=== PATIENT | male | born 1990 | race Caucasian/White ===

== ENCOUNTER 2017-11-25 17:27 | Observation (INO) | payer OTHER ==
--- NOTE | 2017-11-25 17:43 | CPEKG ---
Heart Rate: 70 RR Interval: 857 P-R Interval: 156 QRSD Interval: 100 QT Interval: 436 QTC Interval: 471 P [place]: 32 QRS [place]: 108 T Wave [place]: 60 EKG Severity - ABNORMAL ECG - EKG Impression: SINUS ARRHYTHMIA, RATE 52-81 Electronically Signed By: Ba Gary 27-Nov-2017 07:25:55
[2017-11-25] MEDS ORDERED: ASPIRIN 81 MG CHEWABLE TAB PO ONE (17:45)
[2017-11-25] MEDS ORDERED: NS 1,000 ML IV ONE (17:45)
--- NOTE | 2017-11-25 17:49 | EDPHY ---
H & P Time Seen by Provider: 11/25/17 17:45 HPI/ROS: CHIEF COMPLAINT: Near syncope HISTORY OF PRESENT ILLNESS: Patient is a 26-year-old male who presents to the emergency department after having a near syncopal episode. Patient states he was going working gotten lift. He began to feel lightheaded and as though he might pass out. He went to get water from [employer]. He laid down on the ground because of his symptoms. He denies loss of consciousness. He has no headache. He has had ongoing chest pain for the past few days after"taking hit of marijuana." He has no significant shortness of breath. No abdominal pain. No nausea vomiting. He complains of an abrasion to his left elbow but denies any other trauma. EMS reports a normal EKG. His glucose was 150. He did have 1 episode of hypotension. REVIEW OF SYSTEMS: My complete review of systems is negative except as mentioned in the HPI. Past Medical/Surgical History: Includes depression, anxiety Social history: Includes THC. No drugs or alcohol today. Smoking Status: Never smoked Physical Exam: Vitals noted GENERAL: Mild acute distress, alert. HEENT: Eyes normal to inspection, normal pharynx, no signs of dehydration. NECK: No thyromegaly, no lymphadenopathy, supple. RESPIRATORY: Clear to auscultation bilaterally, no rales, rhonchi or wheezing. CVS: Regular rate and rhythm, no rubs, murmurs, or gallops. ABDOMEN: Soft, nontender, nondistended, no organomegaly. BACK: Normal to inspection, no CVA tenderness. SKIN: Normal color, no rash, warm, dry. No pallor. EXTREMITIES: No pedal edema, no calf tenderness, no Homans sign or cords, no joint swelling. NEURO/PSYCH: Higher functions: Alert and Oriented x3. Normal speech and cognition. Normal mood and affect. Cranial nerves: Normal as tested. Cerebellar: Normal as tested. Good finger to nose, good ostn-pi-jget. Peripheral exam: Normal motor exam. Normal sensation. Constitutional: Initial Vital Signs Temperature (C) 36.6 C 11/25/17 17:35 Heart Rate 77 11/25/17 17:35 Respiratory Rate 12 11/25/17 17:35 Blood Pressure 122/85 H 11/25/17 17:35 O2 Sat (%) 97 11/25/17 17:35 O2 Delivery Mode Room Air Allergies/Adverse Reactions: No Known Allergies Allergy (Unverified 11/25/17 17:35) Home Medications: Medication Instructions Recorded Herbals/Supplements -Info Only 1 ea PO DAILY 11/25/17 Medical Decision Making - Diagnostics Imaging Results: Imaging Impressions Chest X-Ray 11/25/17 17:46 Impression: 1. No acute pulmonary disease. 2. No pneumothorax. ED Course/Re-evaluation: In the emergency department I met EMS on arrival. I took report from the oil filters inspector. Laboratory studies and EKG were obtained. Patient was noted to have an intermittent episode of bradycardia to the 40s on his monitor. This was not common EKG. Patient had defibrillator pads placed. Patient was given normal saline 1 L IV for hydration. EKG shows normal sinus rhythm, normal rate, left posterior fascicular block, borderline prolonged QT. Patient's CBC was unremarkable. Chemistry panel was notable for mildly elevated anion gap. Troponin was negative. Coags were normal. 1920: Patient has a repeat episode of feeling lightheaded and dizzy. It was noted that he wanted SVT at a rate of 170. He performed a Valsalva maneuver and this converted him back into a sinus rhythm at 107. Patient's symptoms improved after he was in a sinus rhythm. Repeat EKG was ordered. I discussed case with the hospitalist service. Dr. Yoder accepted. U tox was added I discussed the case with Dr. Jeffery Stanford. A repeat EKG Sinus arrhythmia at 81. Borderline right axis deviation. Borderline prolonged QT. Differential Diagnosis: My differential includes but is not limited to bradycardia, dysrhythmia, ACS, acute CO, electrolyte abnormality, sugar abnormality, anxiety, drug use Critical Care Time: Patient required 35 min of critical care time. This was exclusive of any unbundled procedure. This was due the patient's initial presentation and symptoms, bradycardia, tachycardia with SVT, consultation with hospitalist service and Cardiology, frequent rechecks and time spent at the bedside. - Data Points Laboratory Results: Laboratory Results 11/25/17 17:45 11/25/17 17:45 11/25/17 11/25/17 11/25/17 17:45 17:45 17:45 WBC RBC Hgb Hct MCV MCH MCHC RDW Plt Count MPV Neut % (Auto) Lymph % (Auto) Carver % (Auto) Eos % (Auto) Baso % (Auto) Nucleat RBC Rel Count Absolute Neuts (auto) Absolute Lymphs (auto) Absolute Monos (auto) Absolute Eos (auto) Absolute Basos (auto) Absolute Nucleated RBC Immature Gran % Immature Gran # PT INR APTT Sodium 140 mEq/L mEq/L (135-145) Potassium 3.6 mEq/L mEq/L (3.5-5.2) Chloride 100 mEq/L mEq/L (97-110) Carbon Dioxide 21 mEq/l L mEq/l (22-31) Anion Gap 19 mEq/L H mEq/L (8-16) BUN 18 mg/dL mg/dL (7-23) Creatinine 1.2 mg/dL mg/dL (0.7-1.3) Estimated GFR > 60 Glucose 135 mg/dL H mg/dL (70-100) Calcium 9.6 mg/dL mg/dL (8.5-10.4) Magnesium 1.9 mg/dL mg/dL (1.6-2.3) Troponin I < 0.012 ng/mL ng/mL (0.000-0.034) TSH 0.779 uIU/mL uIU/mL (0.465-4.680) 11/25/17 11/25/17 17:45 17:45 WBC 5.69 10^3/uL 10^3/uL (3.80-9.50) RBC 5.86 10^6/uL 10^6/uL (4.40-6.38) Hgb 16.8 g/dL g/dL (13.7-17.5) Hct 49.8 % % (40.0-51.0) MCV 85.0 fL fL (81.5-99.8) MCH 28.7 pg pg (27.9-34.1) MCHC 33.7 g/dL g/dL (32.4-36.7) RDW 12.3 % % (11.5-15.2) Plt Count 282 10^3/uL 10^3/uL (150-400) MPV 9.3 fL fL (8.7-11.7) Neut % (Auto) 57.8 % % (39.3-74.2) Lymph % (Auto) 33.0 % % (15.0-45.0) Carver % (Auto) 7.2 % % (4.5-13.0) Eos % (Auto) 1.4 % % (0.6-7.6) Baso % (Auto) 0.4 % % (0.3-1.7) Nucleat RBC Rel Count 0.0 % % (0.0-0.2) Absolute Neuts (auto) 3.29 10^3/uL 10^3/uL (1.70-6.50) Absolute Lymphs (auto) 1.88 10^3/uL 10^3/uL (1.00-3.00) Absolute Monos (auto) 0.41 10^3/uL 10^3/uL (0.30-0.80) Absolute Eos (auto) 0.08 10^3/uL 10^3/uL (0.03-0.40) Absolute Basos (auto) 0.02 10^3/uL 10^3/uL (0.02-0.10) Absolute Nucleated RBC 0.00 10^3/uL 10^3/uL (0-0.01) Immature Gran % 0.2 % % (0.0-1.1) Immature Gran # 0.01 10^3/uL 10^3/uL (0.00-0.10) PT 14.2 SEC SEC (12.0-15.0) INR 1.08 (0.83-1.16) APTT 28.1 SEC SEC (23.0-38.0) Sodium Potassium Chloride Carbon Dioxide Anion Gap BUN Creatinine Estimated GFR Glucose Calcium Magnesium Troponin I TSH Medications Given: Discontinued Medications Aspirin (Aspirin) 324 mg PO EDNOW ONE Stop: 11/25/17 17:46 Last Admin: 11/25/17 17:52 Dose: 324 mg Sodium Chloride (Ns) 1,000 mls @ 0 mls/hr IV EDNOW ONE; Wide Open PRN Reason: Protocol Stop: 11/25/17 17:46 Last Admin: 11/25/17 17:52 Dose: 1,000 mls Departure - Departure Disposition: [facility] Inpatient Acute Clinical Impression: Near syncope, SVT (supraventricular tachycardia), Bradyarrhythmia Condition: Good
[2017-11-25 17:59] LABS: INR 1.08 (0.83-1.16); PROTIME(PATIENT) 14.2 SEC (12.0-15.0)
[2017-11-25 18:16] LABS: PLATELET COUNT 282 10^3/uL (150-400)
[2017-11-25] MEDS ORDERED: ONDANSETRON 4 MG/2 ML VIAL IVP PRN (19:37)
[2017-11-25] MEDS ORDERED: ONDANSETRON DISINTEGRATING 4 MG TAB PO PRN (19:37)
[2017-11-25] MEDS ORDERED: ACETAMINOPHEN 325 MG TAB PO PRN (19:37)
--- NOTE | 2017-11-25 19:50 | CPEKG ---
Heart Rate: 66 RR Interval: 909 P-R Interval: 156 QRSD Interval: 98 QT Interval: 432 QTC Interval: 453 P [place]: 22 QRS [place]: 106 T Wave [place]: 57 EKG Severity - OTHERWISE NORMAL ECG - EKG Impression: SINUS RHYTHM EKG Impression: BORDERLINE RIGHT AXIS DEVIATION Electronically Signed By: Ba Gayr 27-Nov-2017 07:26:03
--- NOTE | 2017-11-25 20:49 | CPEKG ---
Heart Rate: 106 RR Interval: 566 P-R Interval: 152 QRSD Interval: 92 QT Interval: 372 QTC Interval: 494 P [place]: 55 QRS [place]: 110 T Wave [place]: 37 EKG Severity - ABNORMAL ECG - EKG Impression: SINUS TACHYCARDIA Electronically Signed By: Les Robin 26-Nov-2017 06:53:13
[2017-11-25] MEDS ORDERED: NS 1,000 ML IV SCH (21:15)
--- NOTE | 2017-11-25 21:56 | GHP ---
[f rep st] HISTORY AND PHYSICAL DATE OF ADMISSION: 11/25/2017 CHIEF COMPLAINT: Syncope, jacquie/tachyarrhythmia. HISTORY OF PRESENT ILLNESS: A 26-year-old male with history of scoliosis, marijuana use, anxiety/depression. Brought into the ER by ambulance after having 5 syncopal episodes. In ER, says he had no LOC, but story differed in my exam. Was going to work and got out of the car to go into [employer] and felt very lightheaded and passed out. He laid on the ground due to the symptoms. Then passed out 4 more times briefly. Denies chest pain or shortness of breath. Has felt ill for the past 3 days with fevers, chills, sweats, cough with brownish sputum today. He has several roommates and could have been exposed to infection. No nausea, vomiting, or diarrhea. Has a left elbow laceration after fall. In the ER, he was bradycardic to 40 on telemetry and then had a run of SVT per Dr. العلي. He self-converted with vagal maneuvers. Denies any sudden in the family. Has increased stressors with his hours being cut down at work. He just moved. Is trying to pay off his loans and now being here in the hospital has caused him more anxiety. Reports numbness and tingling throughout hands and feet today intermittently. No vision loss. No slurred speech. No headaches. REVIEW OF SYSTEMS: I completed a 10-point review of systems, negative except as noted in HPI. PAST MEDICAL HISTORY: 1. Scoliosis. 2. Chronic back pain. Uses marijuana. 3. Tobacco use: Vapes nicotine SOCIAL HISTORY: Has 4 roommates. Lives here in [place]. Works at a restaurant. Uses marijuana every 4 days. Vapes. No alcohol. FAMILY HISTORY: Father with cancer. Mother is healthy. Uncle with some heart condition. ALLERGIES: No known drug allergies. MEDICATIONS: Home medications: None. No odyf-loh-pxbqgrr supplements. PHYSICAL EXAMINATION: VITAL SIGNS: Temperature 36.7, blood pressure 124/79, heart rates 40 to 170 per ED report, respirations 20, 98% on room air. GENERAL : He is anxious. Appears uncomfortable. Mildly diaphoretic. HEENT: PERRLA. Dry mucous membranes. CV: Tachy but regular. No murmurs. LUNGS: Clear anteriorly. ABDOMEN: Soft, nontender, nondistended. Positive bowel sounds. : No Wilhelm. No suprapubic tenderness. MUSCULOSKELETAL: 5/5 upper and lower extremity strength. NEURO: 2-12 intact. No focal deficits. Normal sensation to touch. PSYCH: He is anxious. Flat affect. LABORATORY DATA: WBC is 5, hemoglobin 16, hematocrit 49, platelets 282. Coags within normal. Sodium 140, potassium 3.6, chloride 100, carbon dioxide 21. Anion gap 19. Creatinine is 1.2, glucose is 135. Calcium 9.9. Magnesium is 1.9. Troponin is less than 0.012. TSH is 0.779. Chest x-ray personally reviewed by me: No opacity or effusion. EKG personally reviewed by me at 1737 shows a sinus arrhythmia. Repeat showed normal sinus rhythm. Prolonged QTc 494 with a right axis deviation. ASSESSMENT AND PLAN: 1. Syncope: Differential includes orthostasis with decreased oral intake or arrhythmia. Had evidence of bradycardia and supraventricular tachycardia in the emergency room. He is dry on exam as well as an elevated creatinine. He self-converted supraventricular tachycardia with vagal maneuvers. Check lytes. Normal magnesium. Does have evidence of prolonged QTc. There is no sudden cardiac in the family. Will monitor in the PCU on telemetry. Echocardiogram in the morning. Dr. Stanford with cardiology will consult. Anxiety may be playing a role while here as he is very anxious. 2. Chronic back pain: Uses marijuana. 3. Reported numbness, tingling: He has no focal deficits on my exam. Imaging is not warranted at this time. Appears to be having mild panic attack. 4. Diet: Regular. 5. Deep venous thrombosis prophylaxis: Low risk. Ambulatory. DISPOSITION: Patient warrants observation and admission for arrhythmia requiring telemetry, IV fluids, echo. /[id number]/MODL MTDD
--- NOTE | 2017-11-25 22:10 | CPEKG ---
Heart Rate: 84 RR Interval: 714 P-R Interval: 148 QRSD Interval: 96 QT Interval: 396 QTC Interval: 469 P [place]: 45 QRS [place]: 103 T Wave [place]: 41 EKG Severity - BORDERLINE ECG - EKG Impression: SINUS ARRHYTHMIA, RATE 63-97 EKG Impression: BORDERLINE RIGHT AXIS DEVIATION Electronically Signed By: Ba Gary 27-Nov-2017 07:25:38
--- NOTE | 2017-11-26 09:58 | ASMTCAGE ---
CAGE Do you feel you ought to Answers: No cut down on your drinking or drug use? Do people annoy you by Answers: No criticizing your drinking or drug use? Do you drink or use drugs Answers: Yes first thing in the morning ([employer])? Additional Comments uses marijuana when pain from scoliosis is 8/10 in the mornings. Drinks occasionally. See case management note for details. Date Signed: 11/26/2017 09:57 AM Electronically Signed By:Leona Anton RN
--- NOTE | 2017-11-26 10:04 | ASMTCMCOM ---
CM Note CM Note Notes: 11/26/2017 Case Management Note Met w/pt to complete CAGE questionnaire. Pt reports using marijuana for pain control d/t scoliosis every 3 to 4 days. Pt prefers edibles because its "all natural and more holistic". Pt drinks occasionally once every 2 - 3 months. Denies binge drinking. Pt is employed and looking for a second job. Case Management to have pt screened for Medicaid d/t lack of insurance. Pt denies difficulty with obtaining food and uses public transport, [employer] or [employer] for transportation. Pt lives with 4 roommates and his dog. Pt provided phone number for his Mom Erika Post [phone] but requested no contact be made at this time. Pt states he feels his depression is under control at this time. He meditates for his anxiety and finds it helpful. He declined any resources for counseling. Case Management d/c poc: independent with follow up as directed. Case Management to follow. Date Signed: 11/26/2017 10:04 AM Electronically Signed By:Leona Anton RN
--- NOTE | 2017-11-26 10:55 | ECHO ---
[email or web address] [address] [address] Main: [phone] Fax: Transthoracic Echocardiogram Name: ABIGAIL ALEGRIA MR#: [id number] Study Date: 11/26/2017 Study Time: 07:40 AM Date of : 1990 Age: 26 year(s) Height: 182.9 cm (72 in.) Weight: 99.79 kg (220 lb.) BSA: 2.22 m2 Gender: Male Examination: Echo Indication: Presyncope/SVT then bradycardia Image Quality: Contrast: Requested by: Kamille Pierre BP: 143 mmHg/83 mmHg Heart Rate: Rhythm: Indication: Presyncope/SVT then bradycardia Procedure Staff Dsp Engineer: Anila Albarran RDCS Reading Physician: Estela Guerrero MD Requesting Provider: Kamille Pierre Conclusions: Normal size left ventricle. No LV hypertrophy. Normal global systolic LV function. The ejection fraction is estimated to be 60-65 %. LV septal motion consistent with conduction abnormality.. Normal size right ventricle. Normal RV function. No significant valvular disease. No prior echo Measurements: Chambers Valvular Assessment AV/MV Valvular Assessment TV/PV Normal Normal Normal Name Value Range Name Value Range Name Value Range IVSd (2D): 0.7 cm (0.6 cm-1.1 AV meanP mmHg ( - ) cm) MV E Vmax: 0.84 m/s ( - ) LVDd (2D): 5.7 cm (4.2 cm-5.9 MV A Vmax: 0.66 m/s ( - ) cm) MV E/A: 1.27 ( - ) LVDs (2D): 3.5 cm (2.1 cm-4 cm) LVPWd (2D): 0.6 cm (0.6 cm-1 cm) EF Range: 60-65 % Continued Measurements: Chambers Valvular Assessment AV/MV Name Value Name Value LADs: 3.3 cm MV E' Septal: 0.12 m/s LADs Lon.7 cm MV E/E' Septal: 7.00 Patient: ABIGAIL ALEGRIA Study Date: 11/26/2017 Page 1 of 2 07:40 AM LA Area: 15.4 cm2 MV E/E' Lateral: 4.60 Additional Vessels Name Value Ao Ascendin.9 cm Findings: Left Ventricle: Normal size left ventricle. No LV hypertrophy. Normal global systolic LV function. The ejection fraction is estimated to be 60-65 %. LV septal motion consistent with conduction abnormality.. Right Ventricle: Normal size right ventricle. Normal RV function. Left Atrium: The left atrium is normal in size. Right Atrium: The right atrium is normal in size. Mitral Valve: The mitral valve is normal in appearance and function. Trivial mitral valve regurgitation. Aortic Valve: The aortic valve is normal in appearance and function. The aortic valve is tri-leaflet. Tricuspid Valve: The tricuspid valve is normal in appearance and function. Trivial tricuspid valve regurgitation. Pulmonic Valve: The pulmonic valve is normal in appearance and function. Aorta: The aorta is normal. Pericardium: No pericardial effusion. (No Signature Object) Patient: ABIGAIL ALEGRIA Study Date: 11/26/2017 Page 2 of 2 07:40 AM D:_[id number]
[2017-11-26 11:55] VITALS: BP 138/75
--- NOTE | 2017-11-26 12:07 | CPEKG ---
Heart Rate: 85 RR Interval: 706 P-R Interval: 156 QRSD Interval: 94 QT Interval: 376 QTC Interval: 447 P [place]: 39 QRS [place]: 104 T Wave [place]: 20 EKG Severity - OTHERWISE NORMAL ECG - EKG Impression: SINUS RHYTHM Electronically Signed By: Jatinder Woodard 26-Nov-2017 12:42:03
--- NOTE | 2017-11-26 12:14 | GCON ---
[f rep st] CONSULTATION CARDIOLOGY CONSULT DATE OF CONSULTATION: 11/26/2017 CHIEF COMPLAINT: SVT. HISTORY OF PRESENT ILLNESS: We were asked by Dr. Levine to visit with the patient. The patient is a pleasant 26-year-old male with no previous cardiac history and no ongoing medical problems. Yesterday, he was riding in a car on his way to work. He suddenly felt his arms go numb, and he felt very lightheaded and in general unwell. He asked to stop at a grocery store because he wanted to ge t some water. On the way in, he said that his whole body went numb, and he had significant presyncop e, to the point where he fell and hit his elbow and his backside. He did not have true loss of consc iousness. He reports that he noticed his heart was racing. He was brought to the ER and at that manuel e was in sinus rhythm. By report from the ER, he did have another episode of presyncope with pablo MOORET on the monitor at a rate of 170 beats per minute. He felt exactly like he did in the grocery store. I am attempting to obtain these rhythm strips. He was given fluids and admitted for observa tion. In general, he reports feeling well. He does have scoliosis and occasionally smokes marijuana for hi s back pain. He is active and runs, bikes, and lift weights. He does not have cardiovascular sympto ms outside of his arrhythmia episodes. He has never previously had syncope. He does know that about 6 months ago after drinking a single beer, he had similar symptoms where his arms went numb and he f elt lightheaded. He put ice on his face and under his armpits, and symptoms resolved. There is no f amily history of premature sudden cardiac . REVIEW OF SYSTEMS: A full 10-point review of systems was performed and is otherwise negative, except that which is outlined above. ALLERGIES: No known drug allergies. PAST MEDICAL HISTORY: Scoliosis. Depression. Anxiety. OUTPATIENT MEDICATIONS: None. SOCIAL HISTORY: The patient smokes marijuana about every 5 days. He drinks alcohol very rarely. He denies cocaine use. The last time he used psychedelic mushrooms was 3 years ago. He denies signifi cant stimulus use. FAMILY HISTORY: Negative for premature coronary disease or sudden cardiac . There is hypertens ion and cancer in his family. PHYSICAL EXAM: VITAL SIGNS: Blood pressure is 143/83. Heart rate has been 77-103. Oxygen saturati on 99% on room air. He is afebrile. GENERAL: Well-appearing young male in no acute distress. CARDI OVASCULAR: JVP is less than 10. Regular rate and rhythm, without murmur or gallop. LUNGS: Clear, without wheeze, rhonchi, or rales. HEENT: Sclerae clear, no jaundice. Mucous members are moist. No rmocephalic, atraumatic. ABDOMEN: Soft, nontender, nondistended. There is no hepatosplenomegaly. EXTREMITIES: Warm, well perfused, without cyanosis, clubbing, or edema. NEURO: Alert and oriented x3, without gross focal neurologic deficits. Appropriate mood and affect. Serial EKGs were reviewed by me, show sinus rhythm with left posterior fascicular block and intermitt ent borderline prolonged QT. Chest x-ray reviewed by me shows normal sinus rhythm. Echocardiogram reviewed by me shows normal LV size and systolic function. Mild septal wall motion abnormality, likely related to mild conduction s ystem delay. No significant valvular disease. Normal LV systolic function. LABORATORY DATA: CBC is normal. INR is normal. Basic metabolic panel is normal. Magnesium 1.9. T roponin negative x1 and TSH 0.779. His urine tox screen was positive. ASSESSMENT AND PLAN: A 26-year-old male with supraventricular tachycardia that was highly symptomati c. His QT is borderline prolonged, but on some EKGs, looks more normal. 1. Supraventricular tachycardia: We did discuss options with the patient, including daily medicatio ns, such as diltiazem, ablation, or quitting alcohol and nicotine, which I recommend regardless, and observing. The patient was also seen by my partner, Dr. Patel Gary, and these options were reviewed a gain. The patient would like to stop alcohol and nicotine completely and return if he has recurrent SVT, at which time an ablation could be considered. I think this is reasonable since he has a struct urally normal heart and did not have true syncope and is able to usually break the arrhythmia with va gal maneuvers. 2. Borderline QT: He did not receive Zofran in the ER. He has not had unexplained syncope. No kno wn family history of sudden . Repeat EKG now prior to discharge. Unlikely that this is clinica lly significant. Thank you for allowing us to participate in the patient's care. He is welcome to follow up as needed in our office. /[id number]/MODL
--- NOTE | 2017-11-26 12:37 | ASMTLACE ---
LACE Length of stay for Answers: Less than 1 day current admission Acuity / Level of Answers: No Care: Did the patient have an inpatient admission? # of Emergency department Answers: 1-2 visits in the last 6 months Social determinants Answers: History of substance abuse (ETOH, street drugs, prescription drugs, etc.) Mental health diagnosis (anxiety, depression, pers onality disorders, etc.) Score: 7 Date Signed: 11/26/2017 12:36 PM Electronically Signed By:Leona Anton RN
--- NOTE | 2017-11-26 12:46 | ASDISCHSUM ---
Discharge Information Plan Status:Home with No Needs Medically Cleared to Leave:11/26/2017 Discharge Date:11/26/2017 CM D/C Disposition:Home, Routine, Self-Care ADT D/C Disposition:Home, Routine, Self-Care Projected Discharge Date:11/26/2017 Transportation at D/C:Self Discharge Delay Reason: Follow-Up Date:11/26/2017 Discharge Slot: Final Diagnosis: Placement Information Patient Contact Information Contact Name:NORRIS Relationship:Mother Address: Work Phone: City: [facility] Phone: State/[place] Code: Email: Financial Information Financial Class:Self-Pay Primary Plan Desc:SELF PAY Primary Plan Number: Secondary Plan Desc: Secondary Plan Number: Assessment Information LACE LACE Length of stay for Answers: Less than 1 day current admission Acuity / Level of Answers: No Care: Did the patient have an inpatient admission? # of Emergency department Answers: 1-2 visits in the last 6 months Social determinants Answers: History of substance abuse (ETOH, street drugs, prescription drugs, etc.) Mental health diagnosis (anxiety, depression, pers onality disorders, etc.) Score: 7 Date Signed: 11/26/2017 12:36 PM Electronically Signed By:Leona Anton RN CAGE Questionnaire CAGE Do you feel you ought to Answers: No cut down on your drinking or drug use? Do people annoy you by Answers: No criticizing your drinking or drug use? Do you drink or use drugs Answers: Yes first thing in the morning ([employer])? Additional Comments uses marijuana when pain from scoliosis is 8/10 in the mornings. Drinks occasionally. See case management note for details. Date Signed: 11/26/2017 09:57 AM Electronically Signed By:Leona Anton RN [facility] Progress Note CM Note CM Note Notes: 11/26/2017 Case Management Note Met w/pt to complete CAGE questionnaire. Pt reports using marijuana for pain control d/t scoliosis every 3 to 4 days. Pt prefers edibles because its "all natural and more holistic". Pt drinks occasionally once every 2 - 3 months. Denies binge drinking. Pt is employed and looking for a second job. Case Management to have pt screened for Medicaid d/t lack of insurance. Pt denies difficulty with obtaining food and uses public transport, [employer] or [employer] for transportation. Pt lives with 4 roommates and his dog. Pt provided phone number for his Mom Erika Post [phone] but requested no contact be made at this time. Pt states he feels his depression is under control at this time. He meditates for his anxiety and finds it helpful. He declined any resources for counseling. Case Management d/c poc: independent with follow up as directed. Case Management to follow. Date Signed: 11/26/2017 10:04 AM Electronically Signed By:Leona Anton RN Case Management Discharge Plan Note Case Management Discharge Discharge Order Complete? Answers: Yes Patient to Obtain Answers: Independently Medications Transportation Arranged Answers: Other Notes: self Discharge Comments Notes: 11/26/2017 Medicaid gurvinder completed this morning. Pt to d/c independent with follow up as directed. Forwarded pt info to [facility] for Medicaid follow up after d/c. Date Signed: 11/26/2017 12:36 PM Electronically Signed By:Leona Anton RN Intervention Information
--- NOTE | 2017-11-26 13:08 | GDS ---
[f rep st] DISCHARGE SUMMARY DISCHARGE DIAGNOSES: 1. Supraventricular tachycardia. 2. Scoliosis and chronic back pain. 3. Tobacco abuse. 4. Anxiety/depression. 5. Syncope. HISTORY: Rod is a 26-year-old male, brought in by ambulance after having 5 syncopal events. He had a witnessed on telemetry run of SVT in the emergency room. He self-converted with vagal maneuvers. HOSPITAL COURSE: He was admitted to observation. He remained in normal sinus rhythm throughout the rest of his hospital stay. Cardiology saw him here in consultation. They did offer him an ablation which he declined at this time. He desires to discontinue all stimulants and see whether not he can control in that manner. He will discontinue tobacco and any other stimulant drugs. He understands v agal maneuvers and had to abort episodes when they arrive. He understands the risk of presyncope and behavior modifications to ensure safety in case he has acute onset of an attack. He is given contac t information for Dr. Gary. He can follow up as needed for recurrence of SVT. He may consider an abl ation in the future. DISCHARGE MEDICATIONS: Please see computerized record for full detailed list. No new medications gi ashley at hospital discharge. ADDITIONAL DISCHARGE INSTRUCTIONS: Discontinue all stimulant drugs. Patient was seen and examined by me on the day of discharge. /[id number]/MODL
--- NOTE | 2017-11-26 14:15 | PDCARCONS ---
Cardiology Consult Reason for Consult: Electrophysiology consultation for syncope and supraventricular tachycardia Chief Complaint: Syncope, palpitations Requesting Physician: Dr. Estela Guerrero History of Present Illness: 26-year-old male, had taken a [employer] to [employer], was walking into the store when he had sudden onset of palpitations and near syncope. He categorically states that he was awake but unable to respond during this episode. He was brought to the emergency department, had another episode, reportedly at a heart rate of 170-180 beats per minute, terminated with vagal maneuvers. He felt exactly the same as he had felt with his prior episode. This is per the emergency physician's note. There was no ECG done, rhythm strips are not available for me to review. History Information - Allergies/Home Medication List Allergies/Adverse Reactions: No Known Allergies Allergy (Unverified 11/25/17 17:35) I have personally reviewed and updated: family history, medical history, social history Past Medical History: - Past Medical History no pertinent PMH - Social History Smoking Status: Never smoked Physical Exam Physical Exam: Temp Pulse Resp BP Pulse Ox 37.1 C 108 H 12 138/75 H 96 11/26/17 11:51 11/26/17 11:51 11/26/17 11:51 11/26/17 11:51 11/26/17 11:51 Constitutional: no apparent distress, appears nourished Eyes: PERRL, anicteric sclera, EOMI Ears, Nose, Mouth, Throat: moist mucous membranes, hearing normal Cardiovascular: regular rate and rhythym, no murmur, rub, or gallop Respiratory: no respiratory distress, no rales or rhonchi Gastrointestinal: normoactive bowel sounds, soft, non-tender abdomen Skin: warm Neurologic: AAOx3 Psychiatric: interacting appropriately, not anxious, not encephalopathic Lab and Imaging 11/25/17 17:45 11/26/17 03:48 WBC 5.69 10^3/uL (3.80-9.50) 11/25/17 17:45 RBC 5.86 10^6/uL (4.40-6.38) 11/25/17 17:45 Hgb 16.8 g/dL (13.7-17.5) 11/25/17 17:45 Hct 49.8 % (40.0-51.0) 11/25/17 17:45 MCV 85.0 fL (81.5-99.8) 11/25/17 17:45 MCH 28.7 pg (27.9-34.1) 11/25/17 17:45 MCHC 33.7 g/dL (32.4-36.7) 11/25/17 17:45 RDW 12.3 % (11.5-15.2) 11/25/17 17:45 Plt Count 282 10^3/uL (150-400) 11/25/17 17:45 MPV 9.3 fL (8.7-11.7) 11/25/17 17:45 Neut % (Auto) 57.8 % (39.3-74.2) 11/25/17 17:45 Lymph % (Auto) 33.0 % (15.0-45.0) 11/25/17 17:45 Mckean % (Auto) 7.2 % (4.5-13.0) 11/25/17 17:45 Eos % (Auto) 1.4 % (0.6-7.6) 11/25/17 17:45 Baso % (Auto) 0.4 % (0.3-1.7) 11/25/17 17:45 Nucleat RBC Rel Count 0.0 % (0.0-0.2) 11/25/17 17:45 Absolute Neuts (auto) 3.29 10^3/uL (1.70-6.50) 11/25/17 17:45 Absolute Lymphs (auto) 1.88 10^3/uL (1.00-3.00) 11/25/17 17:45 Absolute Monos (auto) 0.41 10^3/uL (0.30-0.80) 11/25/17 17:45 Absolute Eos (auto) 0.08 10^3/uL (0.03-0.40) 11/25/17 17:45 Absolute Basos (auto) 0.02 10^3/uL (0.02-0.10) 11/25/17 17:45 Absolute Nucleated RBC 0.00 10^3/uL (0-0.01) 11/25/17 17:45 Immature Gran % 0.2 % (0.0-1.1) 11/25/17 17:45 Immature Gran # 0.01 10^3/uL (0.00-0.10) 11/25/17 17:45 PT 14.2 SEC (12.0-15.0) 11/25/17 17:45 INR 1.08 (0.83-1.16) 11/25/17 17:45 APTT 28.1 SEC (23.0-38.0) 11/25/17 17:45 Sodium 141 mEq/L (135-145) 11/26/17 03:48 Potassium 3.9 mEq/L (3.5-5.2) 11/26/17 03:48 Chloride 108 mEq/L (97-110) 11/26/17 03:48 Carbon Dioxide 22 mEq/l (22-31) 11/26/17 03:48 Anion Gap 11 mEq/L (8-16) 11/26/17 03:48 BUN 10 mg/dL (7-23) 11/26/17 03:48 Creatinine 0.8 mg/dL (0.7-1.3) 11/26/17 03:48 Estimated GFR > 60 11/26/17 03:48 Glucose 87 mg/dL (70-100) 11/26/17 03:48 Calcium 8.8 mg/dL (8.5-10.4) 11/26/17 03:48 Magnesium 1.9 mg/dL (1.6-2.3) 11/25/17 17:45 Troponin I < 0.012 ng/mL (0.000-0.034) 11/25/17 17:45 TSH 0.779 uIU/mL (0.465-4.680) 11/25/17 17:45 Urine Opiates Screen NEGATIVE (NEGATIVE) 11/25/17 20:15 Urine Barbiturates NEGATIVE (NEGATIVE) 11/25/17 20:15 Ur Phencyclidine Scrn NEGATIVE (NEGATIVE) 11/25/17 20:15 Ur Amphetamine Screen NEGATIVE (NEGATIVE) 11/25/17 20:15 U Benzodiazepines Scrn NEGATIVE (NEGATIVE) 11/25/17 20:15 Urine Cocaine Screen NEGATIVE (NEGATIVE) 11/25/17 20:15 U Marijuana (THC) Screen NON-NEGATIVE (NEGATIVE) H 11/25/17 20:15 Visualized and Interpreted EKG results: Yes EKG Interpretation: Positive for: normal sinsus rhythm Telemetry: Normal sinus rhythm A/P Assessment: 1. Presyncope 2. Supraventricular tachycardia Plan: 26-year-old male with palpitations and supraventricular tachycardia documented on fitter/welder by emergency department physician, the episode terminated with vagal maneuvers. I have not seen these rhythm strips, there are not available for review. I discussed treatment options for supraventricular tachycardia with the patient at length. These include either medical therapy with beta-georges/calcium channel blockers or ablation procedure. Side effects of drug were discussed. Risks of ablation including , mi, CVA, cardiac tamponade, vascular access complications, deep venous thrombosis, pulmonary embolism, retroperitoneal bleed , anesthesia related complications, infection etc. Were discussed with him. He has had 2 episodes in his lifetime, the 1st 1 happened after having a single beer, he does not drink alcohol at other times. The other episode yesterday happened after 3 days of fasting. At this time, the patient does not want either medical therapy or EP study/ ablation. He is going to try to changes lifestyle including avoiding smoking and alcohol, these do not seem to be a significant trigger in my opinion. If he continues to have episodes, he will contact my nurse to schedule a clinic follow-up and or EP study. Case was discussed with Dr. Juani Levine and Dr. Estela Guerrero. Thank you for letting me take care of this very pleasant patient. Total time spent with the patient was 30 min, more than 50% was spent counseling.
== END 2017-11-26 13:13 | disposition home or self-care (01) ==
LOC: F2W 20:33
PROVIDERS: ADMIT Internal Medicine; ATTEND Internal Medicine
DX: I47.1 Supraventricular tachycardia (principal); R55 Syncope and collapse; F41.8 Other specified anxiety disorders; F12.90 Cannabis use, unspecified, uncomplicated; Z87.891 Personal history of nicotine dependence
CPT/HCPCS: 71045; 93005; 93306; G0378; 80305